=== PATIENT | male | born 1980 | race Caucasian/White ===

== ENCOUNTER 2016-08-19 16:04 | Emergency (ER) | payer OTHER ==
[~2016-08-19] VITALS: Ht 175.3 cm; Wt 76.4 kg
[2016-08-19 16:07] VITALS: TEMP 36.8; Ht 175.3 cm; Wt 76.4 kg
[2016-08-19 17:18] VITALS: BP 130/90; PULSE 80; O2SAT 96
--- NOTE | 2016-08-19 17:34 | EMERGENCY ROOM VISIT NOTE ---
History First contact with patient: 16:10 Chief Complaint: EYE ASSESSMENT Stated Complaint: SLIGHTLY YELLOWING OF THE EYES History of Present Illness The patient is a 35 year old male who presents to the Emergency Room with complaints of possible yellow discoloration of the eyes. The patient states that someone told him today that his eyes appear more yellow than normal. He states he does wear contacts. He denies any history of liver problems. The patient does not drink alcohol. He states that he is concerned because he is adopted and does not know his family history. He is concerned that he may have cancer. He also reports he has a palpable lymph node in the left side of his neck. The patient denies any recent illnesses, fevers, chest pain, shortness of breath, headache or neck pain. Review of Systems A complete 10-point Review of Systems was discussed with the patient, with pertinent positives and negatives listed in the History of Present Illness. All remaining Review of Systems questions can be considered negative unless otherwise specified. Past Medical/Surgical History Medical Problems: (1) Anxiety Social History Smoking Status: Current Every Day Smoker Alcohol Use: none Drug Use: none Marital Status: in relationship Housing Status: lives with significant other Occupation Status: unemployed Current/Historical Medications No Active Prescriptions or Reported Meds Allergies Coded Allergies: Penicillins (Verified Allergy, Unknown, ., 08/19/16) Physical Exam Vital Signs Date Time Temp Pulse Resp B/P Pulse Ox O2 Delivery O2 Flow Rate FiO2 08/19/16 17:18 80 10 130/90 96 Room Air 08/19/16 16:07 36.8 115 20 148/87 98 Room Air Right Eye Acuity: 20/25 Left Eye Acuity: 20/50 Physical Exam VITALS: Vitals are noted on the nurse's note and reviewed by myself. Vital signs stable. GENERAL: This is a 35-year-old male, in no acute distress, nondiaphoretic, well- developed well-nourished. SKIN: The skin was without rashes. HEAD: Normocephalic atraumatic. EARS: External auditory canals clear, tympanic membranes pearly villatoro without erythema or effusion bilaterally. EYES: Pupils equal round and reactive to light and accommodation. Conjunctivae without injection, sclerae without icterus. Extraocular movements intact. MOUTH: Mucous membranes moist. Tonsils are not enlarged. Pharynx without erythema or exudate. NECK: Supple without nuchal rigidity. There is a minimally enlarged palpable left anterior cervical lymph node. No tenderness to palpation. HEART: Regular rate and rhythm without murmurs gallops or rubs. LUNGS: Clear to auscultation bilaterally without wheezes, rales or rhonchi. NEURO: Patient was alert and oriented to person place and time. Medical Decision & Procedures Laboratory Results Test 08/19/16 16:39 Total Bilirubin 0.8 mg/dl (0.2-1) Direct Bilirubin 0.1 mg/dl (0-0.2) Aspartate Amino Transf (AST/SGOT) 11 U/L (15-37) Alanine Aminotransferase (ALT/SGPT) 24 U/L (12-78) Alkaline Phosphatase 74 U/L (45-117) Total Protein 7.5 gm/dl (6.4-8.2) Albumin 4.3 gm/dl (3.4-5.0) Medical Decision The patient was evaluated as above. He does not have any obvious scleral icterus or jaundice. However, given the patient's anxiety regarding this, I did choose to order liver function testing. These were completely normal. The patient was informed of this and did state that this helped to relieve his anxiety. The patient does have a very small palpable left cervical lymph node. I do not feel that this needs emergent evaluation. The patient was instructed to follow-up with a primary care provider regarding this finding for possible outpatient workup including ultrasound or biopsy. The patient verbalized understanding of my assessment and treatment plan. I stressed the need to follow up with a primary care provider regarding these complaints. The patient verbalized understanding of my assessment and treatment plan and was discharged home in good condition. Impression Primary Impression: Anterior cervical lymphadenopathy Additional Impression: Anxiety about health Departure Information Dispostion Home / Self-Care Condition GOOD Prescriptions No Active Prescriptions or Reported Meds Referrals No Doctor, Assigned (PCP) Patient Instructions My [facility] Additional Instructions Liver function tests were normal. You should schedule an appointment with a primary care provider for further evaluation of your symptoms. Problem Qualifiers
== END 2016-08-19 17:39 | disposition home or self-care (01) ==
LOC: C.EDB 16:05 → C.EDD 17:39
DX: R59.0 Localized enlarged lymph nodes (principal); F41.9 Anxiety disorder, unspecified; F17.200 Nicotine dependence, unspecified, uncomplicated

== ENCOUNTER 2016-09-04 14:52 | Emergency (ER) | payer OTHER ==
[~2016-09-04] VITALS: Ht 175.3 cm; Wt 78.2 kg
[2016-09-04 15:14] VITALS: TEMP 36.4; Ht 175.3 cm; Wt 78.2 kg
--- NOTE | 2016-09-04 15:56 | EMERGENCY ROOM VISIT NOTE ---
History First contact with patient: 15:21 Chief Complaint: THROAT PAIN/INJURY Stated Complaint: LUMP L SIDE OF NECK,FEELS LIKE SOMETHING IN THROA History of Present Illness The patient is a 35 year old male who presents to the Emergency Room with complaints of left sided submandibular lymphadenopathy. The patient states that he has noticed a lymph node in the left side of his neck for the last 1 month. The patient states he does not have any pain. He denies any fevers. He denies any sore throat. He denies any pain in his chest or trouble breathing. He denies any pain currently. He denies any abdominal pain, nausea or vomiting. He denies any other illness or complaints. The patient does admit to having very poor dentition. He states that his dentist is in correction and he cannot see a dentist. Review of Systems A 10 system review of systems was completed with positives and pertinent negatives listed in the HPI. Past Medical/Surgical History Medical Problems: (1) Anxiety Social History Smoking Status: Current Every Day Smoker Alcohol Use: none Drug Use: none Marital Status: in relationship Housing Status: lives with significant other Occupation Status: unemployed Current/Historical Medications Scheduled Clindamycin Hcl (Cleocin), 300 MG PO QID Allergies Coded Allergies: Penicillins (Verified Allergy, Unknown, ., 09/04/16) Physical Exam Vital Signs Date Time Temp Pulse Resp B/P Pulse Ox O2 Delivery O2 Flow Rate FiO2 09/04/16 17:02 71 18 139/78 100 Room Air 09/04/16 15:29 98 Room Air 09/04/16 15:14 36.4 74 16 146/83 98 Room Air Physical Exam VITALS: Vitals are noted on the nurse's note and reviewed by myself. Vital signs stable. The patient is afebrile. GENERAL: This is a 35-year-old male, in no acute distress, nondiaphoretic, well- developed well-nourished. SKIN: The skin was without rashes, erythema, edema, or bruising. There is no tenting of the skin. Capillary reflex less than 2 seconds. HEAD: Normocephalic atraumatic. EARS: External auditory canals clear, tympanic membranes pearly villatoro without erythema or effusion bilaterally. EYES: Pupils equal round and reactive to light and accommodation. Conjunctivae without injection, sclerae without icterus. Extraocular movements intact. NOSE: Patent, turbinates without inflammation or discharge. MOUTH: Mucous membranes moist. Tonsils are not enlarged. Pharynx without erythema or exudate. Uvula midline. Airway patent. Tongue does not deviate. The patient has terrible dentition. He has 2 lower left-sided molars that are carious, broken and rotten to the gum. NECK: Supple without nuchal rigidity. There is a tiny, left sided submandibular lymph node that is palpable. No thyromegaly. Cervical spine is nontender. No JVD. HEART: Regular rate and rhythm without murmurs gallops or rubs. LUNGS: Clear to auscultation bilaterally without wheezes, rales or rhonchi. No retractions or accessory muscle use. MUSCULOSKELETAL: No muscle atrophy, erythema, or edema noted. Full range of motion in all extremities. Normal gait. Strength 5/5 throughout. NEURO: Patient was alert and oriented to person place and time. No focal neurological deficits. Medical Decision & Procedures ER Provider Diagnostic Interpretation: Soft tissue neck ULTRASOUND HISTORY: Adenopathy left side lymphadenopathy COMPARISON: None. FINDINGS: Evaluation of the soft tissue neck, confirms presence of a 3 cm x 9 mm node at the site of clinically palpable nodularity. A fatty hilum is present. Several smaller nodes are present measuring up to 1.5 cm. IMPRESSION: Left cervical adenopathy accounting for the clinically palpable nodularity Laboratory Results 09/04/16 16:09 Red Blood Count 5.14, Mean Corpuscular Volume 90.5, Mean Corpuscular Hemoglobin 32.5, Mean Corpuscular Hemoglobin Concent 35.9, Mean Platelet Volume 10.8, Neutrophils (%) (Auto) 68.1, Lymphocytes (%) (Auto) 22.5, Monocytes (%) (Auto) 6.8, Eosinophils (%) (Auto) 2.3, Basophils (%) (Auto) 0.2, Neutrophils # (Auto) 5.67, Lymphocytes # (Auto) 1.88, Monocytes # (Auto) 0.57, Eosinophils # (Auto) 0.19, Basophils # (Auto) 0.02 09/04/16 16:09 Test 09/04/16 16:00 09/04/16 16:09 Urine Color YELLOW Urine Appearance CLEAR (CLEAR) Urine pH 6.5 (4.5-7.5) Urine Specific [place] 1.003 (1.000-1.030) Urine Protein NEG (NEG) Urine Glucose (UA) NEG (NEG) Urine Ketones NEG (NEG) Urine Occult Blood NEG (NEG) Urine Nitrite NEG (NEG) Urine Bilirubin NEG (NEG) Urine Urobilinogen NEG (NEG) Urine Leukocyte Esterase NEG (NEG) White Blood Count 8.34 K/uL (4.8-10.8) Red Blood Count 5.14 M/uL (4.7-6.1) Hemoglobin 16.7 g/dL (14.0-18.0) Hematocrit 46.5 % (42-52) Mean Corpuscular Volume 90.5 fL (80-100) Mean Corpuscular Hemoglobin 32.5 pg (25-34) Mean Corpuscular Hemoglobin Concent 35.9 g/dl (32-36) Platelet Count 208 K/uL (130-400) Mean Platelet Volume 10.8 fL (7.4-10.4) Neutrophils (%) (Auto) 68.1 % Lymphocytes (%) (Auto) 22.5 % Monocytes (%) (Auto) 6.8 % Eosinophils (%) (Auto) 2.3 % Basophils (%) (Auto) 0.2 % Neutrophils # (Auto) 5.67 K/uL (1.4-6.5) Lymphocytes # (Auto) 1.88 K/uL (1.2-3.4) Monocytes # (Auto) 0.57 K/uL (0.11-0.59) Eosinophils # (Auto) 0.19 K/uL (0-0.5) Basophils # (Auto) 0.02 K/uL (0-0.2) RDW Standard Deviation 41.4 fL (36.4-46.3) RDW Coefficient of Variation 12.4 % (11.5-14.5) Immature Granulocyte % (Auto) 0.1 % Immature Granulocyte # (Auto) 0.01 K/uL (0.00-0.02) Anion Gap 8.0 mmol/L (3-11) Est Creatinine Clear Calc Drug Dose 87.6 ml/min Estimated GFR () 91.5 Estimated GFR (Non- 79.0 BUN/Creatinine Ratio 8.3 (10-20) Calcium Level 9.2 mg/dl (8.5-10.1) Total Bilirubin 0.7 mg/dl (0.2-1) Aspartate Amino Transf (AST/SGOT) 14 U/L (15-37) Alanine Aminotransferase (ALT/SGPT) 28 U/L (12-78) Alkaline Phosphatase 83 U/L (45-117) Total Protein 7.9 gm/dl (6.4-8.2) Albumin 4.5 gm/dl (3.4-5.0) Globulin 3.4 gm/dl (2.5-4.0) Albumin/Globulin Ratio 1.3 (0.9-2) Monoscreen NEG (NEG) ED Course The patient was seen and examined. Previous visits were reviewed. The patient does not have a fever or leukocytosis. The patient does not have any significant electrolyte abnormalities. Urinalysis was negative. [place] was negative. Ultrasound of the neck reveals anterior cervical lymphadenopathy The patient was seen and examined. Previous visits were reviewed. He has had a palpable left anterior cervical lymph node for the last 1 month. His laboratory studies are unremarkable. The patient does have very poor dentition with broken and carious teeth. I suspect that the lymph node is secondary to dental infection. He will be placed on clindamycin. He was advised to follow- up with a dentist. Once his teeth are taking care of, he was advised to follow- up with his family doctor if the lymph node persists. He should return with any worsening symptoms or change in size of the lymph node. The case was discussed with Dr. Landeros who agrees with the assessment and treatment plan Medical Decision Differential diagnosis includes malignancy, lymph node, viral illness, bacterial illness, among others Impression Primary Impression: Anterior cervical lymphadenopathy Additional Impression: Dental caries Departure Information Dispostion Home / Self-Care Condition GOOD Prescriptions Clindamycin Hcl (CLEOCIN) 300 Mg Cap 300 MG PO QID for 10 Days, #40 CAP Prov: Lilia Velez PA-C 09/04/16 Referrals Delta Osuna M.D. (PCP) Patient Instructions Lymphadenopathy, My [facility] Additional Instructions Clindamycin 4 times daily as prescribed, until finished Contact a dentist for further evaluation and management of the teeth Follow-up with a family doctor if the lymph node persists after the tooth is treated Return with any worsening symptoms Problem Qualifiers
[2016-09-04 16:15] LABS: BASO % 0.2 %; BASO ABS # 0.02 K/uL (0-0.2); COMPLETE YES; EOS % 2.3 %; HEMATOCRIT 46.5 % (42-52); IG% 0.1 %; LYMPH % 22.5 %; LYMPH ABS # 1.88 K/uL (1.2-3.4); MEAN CELL VOLUME 90.5 fL (80-100); MEAN CORPUSCULAR HEMOGLOBIN 32.5 pg (25-34); MEAN CORPUSCULAR HGB CONC 35.9 g/dl (32-36); MEAN PLATELET VOLUME 10.8 fL (7.4-10.4); MONO % 6.8 %; NEUT % 68.1 %; PLATELET COUNT 208 K/uL (130-400); RED BLOOD COUNT 5.14 M/uL (4.7-6.1); WHITE BLOOD COUNT 8.34 K/uL (4.8-10.8)
[2016-09-04 16:26] LABS: URINE APPEARANCE CLEAR (CLEAR); URINE BILIRUBIN NEG (NEG); URINE COLOR YELLOW; URINE NITRITE NEG (NEG); URINE PH 6.5 (4.5-7.5); URINE SPECIFIC GRAVITY 1.003 (1.000-1.030); UROBILINOGEN NEG (NEG); ZZUR CULT IF INDIC CLEAN CATCH NO
[2016-09-04 16:31] LABS: MANUAL MICROSCOPIC REQUIRED? NO; REVIEW REQ? NO
[2016-09-04 16:34] LABS: BUN/CREATININE RATIO 8.3 (10-20); CALCIUM 9.2 mg/dl (8.5-10.1); CREATININE 1.2 mg/dl (0.60-1.40); POTASSIUM 3.7 mmol/L (3.5-5.1)
[2016-09-04 16:36] LABS: ALB/GLOB RATIO 1.3 (0.9-2)
--- NOTE | 2016-09-04 16:48 | DIAGNOSTIC IMAGING REPORT ---
Soft tissue neck ULTRASOUND HISTORY: Adenopathy left side lymphadenopathy COMPARISON: None. FINDINGS: Evaluation of the soft tissue neck, confirms presence of a 3 cm x 9 mm node at the site of clinically palpable nodularity. A fatty hilum is present. Several smaller nodes are present measuring up to 1.5 cm. IMPRESSION: Left cervical adenopathy accounting for the clinically palpable nodularity Electronically signed by: Gilmer Jimenez M.D. 09/04/2016 4:46 PM Dictated Date/Time: 09/04/2016 4:44 PM
[2016-09-04 17:02] VITALS: BP 139/78; PULSE 71; O2SAT 100
[2016-09-04] MEDS ORDERED: CLIN300C2 PO (17:07)
== END 2016-09-04 17:20 | disposition home or self-care (01) ==
LOC: C.EDB 14:54 → C.EDA 17:20
DX: R59.0 Localized enlarged lymph nodes (principal); K02.9 Dental caries, unspecified; F41.9 Anxiety disorder, unspecified; F17.210 Nicotine dependence, cigarettes, uncomplicated